=== PATIENT | female | born 1995 | race Caucasian/White ===

== ENCOUNTER 2021-07-27 17:47 | Emergency (ER) | payer BC ==
[~2021-07-27] VITALS: Ht 160 cm; Wt 89.0 kg
[2021-07-27 20:53] LABS: CLARITY URINE CLEAR (CLEAR); COLOR URINE YELLOW (YELLOW); KETONES URINE NEGATIVE (NEGATIVE); LEUKOCYTE ESTERASE URINE NEGATIVE (NEGATIVE); NITRITE URINE NEGATIVE (NEGATIVE); OCCULT BLOOD URINE 2+ (NEGATIVE); PH URINE 6.5 (4.5-8.0); PROTEIN URINE NEGATIVE (NEGATIVE); SPECIFIC GRAVITY URINE 1.023 (1.005-1.030); UROBILINOGEN URINE 0.2 E.U./dL (0.2-1.0)
[2021-07-27 21:46] LABS: BASOPHILS % 0.7 % (0.0-2.0); EOSINOPHILS % 1.3 % (0.0-5.0); HEMOGLOBIN. 11.2 g/dL (12.0-16.0); LYMPHOCYTES % 27.3 % (20.0-50.0); MEAN CORPUSCULAR HEMOGLOBIN 27.3 pg (28.0-32.0); MEAN CORPUSCULAR VOLUME 83.1 fL (81.0-99.0); MEAN PLATELET VOLUME 8.5 fl (7.4-10.4); MONOCYTES % 6.3 % (2.0-8.0); NEUTROPHILS % 64.4 % (40.0-76.0); PLATELET 323 x1000/uL (130-400); RED BLOOD CELL COUNT 4.09 mill/uL (4.2-5.4); RED CELL DISTRIBUTION WIDTH 15.2 % (11.6-14.6)
[2021-07-27 21:52] LABS: CHLORIDE 107 mEq/L (98-107)
[2021-07-27 22:15] LABS: B-HCG QUANTITATIVE 12163 mIU/mL (<3)
[2021-07-28] MEDS ORDERED: METHOTREXATE SODIUM/PF 50 MG/2 ML VIAL IM SCH (00:30)
[2021-07-28 00:33] VITALS: BP 126/75
== END 2021-07-28 02:49 | disposition home or self-care (01) ==
LOC: ER 17:47
DX: O03.9 Complete or unspecified spontaneous abortion without complication (principal); Z3A.08 8 weeks gestation of pregnancy
CPT/HCPCS: 36415; 76801; 76817; 80053; 81003; 81025; 84702; 85025; 86850; 86900; 86901; 96372; 99284; J9260

== ENCOUNTER 2021-08-19 01:53 | Inpatient (IN) | payer BC ==
[~2021-08-19] VITALS: Ht 160 cm; Wt 84.8 kg
[2021-08-19] MEDS ORDERED: ONDANSETRON HCL 4MG/2ML INJ IV STA (02:34)
[2021-08-19] MEDS ORDERED: SODIUM CHLORIDE 0.9% 1,000 ML IV ONE ×2 (02:45→04:30)
[2021-08-19] MEDS ORDERED: ACETAMINOPHEN 325MG TABLET PO ONE (02:45)
[2021-08-19 03:15] LABS: BASOPHILS % 0.3 % (0.0-2.0); EOSINOPHILS % 0.2 % (0.0-5.0); HEMATOCRIT. 32.2 % (36.0-48.0); HEMOGLOBIN. 10.5 g/dL (12.0-16.0); LYMPHOCYTES % 10.3 % (20.0-50.0); MEAN CORPUSCULAR HEMOGLOBIN 27.7 pg (28.0-32.0); MEAN CORPUSCULAR VOLUME 84.7 fL (81.0-99.0); MEAN PLATELET VOLUME 8.5 fl (7.4-10.4); NEUTROPHILS % 85.2 % (40.0-76.0); PLATELET 351 x1000/uL (130-400); RED CELL DISTRIBUTION WIDTH 15.2 % (11.6-14.6)
[2021-08-19 03:24] LABS: CHLORIDE 109 mEq/L (98-107)
[2021-08-19 03:25] LABS: HCG SCREEN POSITIVE
[2021-08-19] MEDS ORDERED: PHENYLEPHRINE HCL 10 MG/ML 1ML (IV VIAL) IV ONE (05:50)
[2021-08-19] MEDS ORDERED: MIDAZOLAM HCL 2 MG/2 ML VIAL ONE (05:54)
[2021-08-19] MEDS ORDERED: FENTANYL CITRATE/PF 50MCG/ML 2ML VIAL ONE (05:57)
[2021-08-19 06:00] LABS: CLARITY URINE CLOUDY (CLEAR); COLOR URINE YELLOW (YELLOW); KETONES URINE TRACE (NEGATIVE); LEUKOCYTE ESTERASE URINE NEGATIVE (NEGATIVE); NITRITE URINE NEGATIVE (NEGATIVE); OCCULT BLOOD URINE TRACE (NEGATIVE); PH URINE 5.5 (4.5-8.0); PROTEIN URINE 1+ (NEGATIVE); SPECIFIC GRAVITY URINE 1.031 (1.005-1.030); UROBILINOGEN URINE 0.2 E.U./dL (0.2-1.0)
[2021-08-19] MEDS ORDERED: SKIN ADHESIVE 0.7 GM EA TOP ONE (06:38)
[2021-08-19] MEDS ORDERED: BUPIVACAINE HCL/PF 0.5% (5MG/ML) 10ML ONE (06:38)
[2021-08-19] MEDS ORDERED: HYDROMORPHONE HCL/PF 2MG/ML CPJ IV PRN (07:15)
[2021-08-19] MEDS ORDERED: ONDANSETRON HCL 4MG/2ML INJ IV PRN (08:00)
[2021-08-19] MEDS ORDERED: MEPERIDINE HCL/PF 25MG/ML CPJ IV PRN (08:00)
[2021-08-19] MEDS ORDERED: ACETAMINOPHEN 650MG SUPP PR PRN (08:00)
[2021-08-19] MEDS ORDERED: KETOROLAC 60MG/2ML VIAL IM SCH (08:00)
[2021-08-19] MEDS ORDERED: CEFAZOLIN 1000MG PREMIX 50 ML IV SCH (08:00)
[2021-08-19] MEDS ORDERED: MEPERIDINE HCL/PF 25MG/ML CPJ ONE (08:17)
[2021-08-19] MEDS ORDERED: NALOXONE HCL 0.4MG/ML VIAL IV PRN (09:00)
[2021-08-19 10:00] VITALS: BP 145/86
[2021-08-19] MEDS: HYDROCODONE/ACETAMINOPHEN 5/325MG TABLET PO PRN ×3 (10:20→22:27)
[2021-08-19] MEDS: FAMOTIDINE 20MG/2ML VIAL IV SCH ×2 (10:44→22:20)
[2021-08-19 12:00] VITALS: BP 137/83
[2021-08-19] MEDS: CEFAZOLIN 1000MG PREMIX 50 ML IV SCH ×2 (13:52→22:14)
[2021-08-19 16:00] VITALS: BP 139/81
[2021-08-19] MEDS: KETOROLAC 30MG/ML VIAL IV SCH (17:53)
[2021-08-19 18:43] VITALS: BP 139/81
[2021-08-19 20:00] VITALS: BP 149/86
[2021-08-19] MEDS ORDERED: DIPHENHYDRAMINE 50MG CAPSULE PO PRN (21:00)
[2021-08-20] VITALS: BP 156/86
[2021-08-20] MEDS: KETOROLAC 30MG/ML VIAL IV SCH ×2 (02:01→09:38)
[2021-08-20 04:00] VITALS: BP 128/69
[2021-08-20] MEDS: CEFAZOLIN 1000MG PREMIX 50 ML IV SCH ×3 (06:17→21:31)
[2021-08-20 07:40] LABS: BASOPHILS % 0.3 % (0.0-2.0); EOSINOPHILS % 0.3 % (0.0-5.0); HEMATOCRIT. 25.5 % (36.0-48.0); HEMOGLOBIN. 8.4 g/dL (12.0-16.0); LYMPHOCYTES % 21.2 % (20.0-50.0); MEAN CORPUSCULAR HEMOGLOBIN 28.1 pg (28.0-32.0); MEAN PLATELET VOLUME 8.8 fl (7.4-10.4); MONOCYTES % 9.7 % (2.0-8.0); NEUTROPHILS % 68.5 % (40.0-76.0); PLATELET 277 x1000/uL (130-400); RED CELL DISTRIBUTION WIDTH 15.7 % (11.6-14.6)
[2021-08-20 08:00] VITALS: BP 107/64
[2021-08-20] MEDS: FAMOTIDINE 20MG/2ML VIAL IV SCH ×2 (09:00→20:22)
[2021-08-20 12:00] VITALS: BP 123/80
[2021-08-20] MEDS: HYDROCODONE/ACETAMINOPHEN 5/325MG TABLET PO PRN (15:01)
[2021-08-20 16:00] VITALS: BP 101/57
[2021-08-20 20:00] VITALS: BP 122/75
[2021-08-21] VITALS: BP 119/56
[2021-08-21] MEDS: HYDROCODONE/ACETAMINOPHEN 5/325MG TABLET PO PRN ×2 (03:47→09:06)
[2021-08-21 04:00] VITALS: BP 101/58
[2021-08-21] MEDS: CEFAZOLIN 1000MG PREMIX 50 ML IV SCH (05:58)
[2021-08-21] MEDS ORDERED: IBUP-2030 MT (07:17)
[2021-08-21 08:00] VITALS: BP 108/55
[2021-08-21] MEDS: FAMOTIDINE 20MG/2ML VIAL IV SCH (09:02)
[2021-08-21 12:04] VITALS: BP 108/55
== END 2021-08-21 13:23 | disposition home or self-care (01) | DRG 817 ==
LOC: ER 01:53 → 6EST 04:32 → ER 05:43 → ENRESERV 07:14
PROVIDERS: ADMIT Specialist; ATTEND Specialist
PROC: 10T20ZZ Resection of Products of Conception, Ectopic, Open Approach (ICD-10-PCS; principal; 2021-08-19)
PROC: 10J24ZZ Inspection of Products of Conception, Ectopic, Percutaneous Endoscopic Approach (ICD-10-PCS; 2021-08-19)
DX: O00.90 Unspecified ectopic pregnancy without intrauterine pregnancy (principal); K66.1 Hemoperitoneum; O26.899 Other specified pregnancy related conditions, unspecified trimester; D64.9 Anemia, unspecified; O99.019 Anemia complicating pregnancy, unspecified trimester; Z20.822 Contact with and (suspected) exposure to COVID-19
CPT/HCPCS: 36415; 76801; 80053; 81003; 84702; 84703; 85025; 86850; 86900; 87426; 88302; 93005; 99291; C1725; J0690; J1885; J2175; J2250; J2370; J3010; J3490; J7030

== ENCOUNTER 2022-01-14 01:28 | Emergency (ER) | payer BC ==
[~2022-01-14] VITALS: Ht 160 cm; Wt 86.0 kg
[~2022-01-14 01:28] MED LIST: IBUP-2030 MT
[2022-01-14 04:19] LABS: BASOPHILS % 0.4 % (0.0-2.0); EOSINOPHILS % 0.7 % (0.0-5.0); HEMATOCRIT. 32.1 % (36.0-48.0); HEMOGLOBIN. 10.6 g/dL (12.0-16.0); LYMPHOCYTES % 24.6 % (20.0-50.0); MEAN CORPUSCULAR HEMOGLOBIN 26.7 pg (28.0-32.0); MEAN CORPUSCULAR VOLUME 80.6 fL (81.0-99.0); NEUTROPHILS % 68.3 % (40.0-76.0); PLATELET 258 x1000/uL (130-400); RED BLOOD CELL COUNT 3.98 mill/uL (4.2-5.4); RED CELL DISTRIBUTION WIDTH 17.8 % (11.6-14.6)
[2022-01-14 04:30] LABS: CHLORIDE 109 mEq/L (98-107)
[2022-01-14 04:53] LABS: CLARITY URINE CLEAR (CLEAR); COLOR URINE YELLOW (YELLOW); KETONES URINE NEGATIVE (NEGATIVE); LEUKOCYTE ESTERASE URINE NEGATIVE (NEGATIVE); NITRITE URINE NEGATIVE (NEGATIVE); OCCULT BLOOD URINE 3+ (NEGATIVE); PH URINE 6.5 (4.5-8.0); PROTEIN URINE TRACE (NEGATIVE); SPECIFIC GRAVITY URINE 1.005 (1.005-1.030); UROBILINOGEN URINE 0.2 E.U./dL (0.2-1.0)
[2022-01-14 05:00] LABS: B-HCG QUANTITATIVE 9801 mIU/mL (<3)
[2022-01-14 05:40] VITALS: BP 130/80
== END 2022-01-14 05:40 | disposition home or self-care (01) ==
LOC: ER 01:28
DX: O20.0 Threatened abortion (principal); Z3A.17 17 weeks gestation of pregnancy
CPT/HCPCS: 36415; 76801; 80053; 81003; 81025; 84702; 85025; 86900; 99284